=== PATIENT | female | born 1950 | race Caucasian/White ===

== ENCOUNTER 2023-12-01 16:31 | Emergency (ER) | payer MEDICARE, OTHER, SELFPAY ==
[2023-12-01 16:33] VITALS: BP 172/92
[2023-12-01 17:05] LABS: % Basophils 0.8 % (0-2); % Eosinophils 1.5 % (0-6); % Immature Granulocytes 0.2 % (0-0.5); % Lymphocytes 36.4 % (20.5-51.1); % Monocytes 4.8 % (1.7-9.3); % Neutrophils 56.3 % (42.2-75.2); Absolute Basophils 0.1 10^3/uL (0-0.2); Absolute Eosinophils 0.1 10^3/uL (0-0.7); Absolute Lymphocytes 2.4 10^3/uL (1.2-3.4); Absolute Monocytes 0.3 10^3/uL (0.1-0.6); Absolute Neutrophils 3.7 10^3/uL (1.4-6.5); Hematocrit 38.3 % (37.0-47.0); Hemoglobin 13.8 g/dL (12.0-16.0); Mean Corpuscular Hgb 32.1 pg (27.0-31.0); Mean Corpuscular Volume 89.1 fL (81.0-99.0); Mean Platelet Volume 9.9 fL (7.4-10.4); Nucleated Red Blood Cells % 0 %; Platelet Count 270 10^3/uL (130-400); Red Cell Dist. Width 12.5 % (11.5-14.5); White Blood Cell Count 6.5 10^3/uL (4.8-10.8)
[2023-12-01 17:24] LABS: ALT (SGPT) 25 U/L (0-35); AST (SGOT) 32 U/L (14-36); Albumin 4.6 g/dl (3.5-5.0); Alkaline Phosphatase 84 U/L (38-126); Blood Urea Nitrogen 17 mg/dl (7-17); Calcium 10.1 mg/dl (8.4-10.2); Carbon Dioxide 25 mmol/L (22-30); Chloride 101 mmol/L (98-107); Glucose 120 mg/dl (70-99); Potassium 3.2 mmol/L (3.5-5.1); Sodium 136 mmol/L (135-145); Total Bilirubin 0.7 mg/dl (0.2-1.3); eGFR > 60.00
[2023-12-01 17:33] LABS: Troponin I < 0.012 ng/ml
--- NOTE | 2023-12-01 17:40 | ED.PDOC.TRB ---
ED Provider Triage
-
Patient seen by provider in Triage?: Seen in Triage
A medical screening examination has been initiated by a qualified medical provider. Based on the assessment performed at this time, it has been determined that an emergent medical condition may exist and the patient has been informed that further
medical evaluation and possible additional diagnostic testing may be needed.
This is a medical evaluation conducted in person to initiate diagnostic evaluation and provide initial therapeutics. Please see further documentation by the treating clinician.
GENERAL: Alert , in no apparent distress
EYE: No visual abnormalities
NECK: No visual changes
ENT: No visual abnormalities
CARDIAC: No murmurs normal rate and rhythm
LUNGS: Breathing normally
ABDOMEN:
NEUROLOGICAL: Alert and oriented, no visual focal neuro deficits
SKIN: Warm and dry, skin intact.
MUSCULOSKELETAL: No edema, well perfused. Moving normally
PSYCH: Normal and appropriate interaction.
HPI/RA Plan: 73-year-old female presenting to the emergency department with concerns of a chest discomfort she describes as mainly a fluttering is not severe does not radiate associate with shortness of breath nausea vomiting or diaphoresis.
Worsened today maximally 4 hours ago. Initial workup here without acute abnormalities. Patient does have some nonspecific EKG changes, no old EKGs for comparison. Plan for repeated EKG for comparison here. Additionally chest x-ray ordered
pending further assessment.
[2023-12-01] MEDS: MAALOX 40 PO (17:55)
--- NOTE | 2023-12-01 20:12 | ED.GENMED ---
History of Present Illness
General
Chief Complaint: Chest Pain
Time Seen by Provider: 12/01/23 20:00
History of Present Illness
History of Present Illness:
73-year-old female with history of hypertension presents to the emergency department for evaluation of chest 'fluttering and pressure symptoms' as well as 'a general unpleasantness' in the chest. This began earlier today and has been intermittent
throughout the day. No obvious provoking or palliating factors. Denies any overt chest pain. Denies fevers or chills.
Review of Systems
Review of Systems
Allergies reviewed?: Yes
All Other Systems: ROS reviewed and negative except as documented in HPI and ROS
Phy Exam
Physical Exam
Physical Exam:
GEN: Well appearing, NAD, WDWN
HEENT: Oral mucosa moist, no scleral icterus
Cardiac: Regular rate and rhythm, no murmurs or extrasystoles
Lung: No respiratory distress, no tachypnea
MSK: No gross deformity or injuries
Skin: Good color, no pallor or jaundice, no rashes
Neuro: AO x3, moves all extremities freely
Psych: Calm, cooperative
Scores
Heart Score for Chest Pain Patients
STEMI patient?: No
History: Slightly or Non-Suspicious
ECG: Normal
Age: >/= 65 years
Risk Factors: 1 or 2 Risk Factors
Troponin: </= Normal Limit
Heart Score for Chest Pain Patients: 3
Heart Score Risk: 2.5% MACE over next 6 weeks
Course
Orders/Labs/Results
Orders:
Orders
12/01/23 16:35
Electrocardiogram (*1) Urgent
Reason for Study: Chest Pain
EKG- Treatment ONCE
12/01/23 16:55
Complete Blood Count/With Diff Urgent
Comprehensive Metabolic Panel Urgent
Troponin I Urgent
12/01/23 17:44
EKG [Electrocardiogram (*1)] Urgent
Reason for Study: Chest Pain
EKG- Treatment ONCE
Mag Hydrox/Al Hydrox/Simeth [Maalox] 30 ml Phenobarb/Hyoscy/Atropine/Scop [] 10 ml PO NOW
12/01/23 17:45
Chest [CR Chest - 2 Views ] Urgent
Comment:
Reason For Exam: cp
12/01/23 17:53
Mag Hydrox/Al Hydrox/Simeth [Maalox] 30 ml .ROUTE .STK-MED ONE
Phenobarb/Hyoscy/Atropine/Scop [] 10 ml .ROUTE .STK-MED ONE
12/01/23 20:11
Potassium Chloride [KCl] 40 meq PO NOW STA
Abnormal Lab Results
12/01/23
16:55
MCH 32.1 H pg
(27.0-31.0)
Potassium 3.2 L mmol/L
(3.5-5.1)
Glucose 120 H mg/dl
(70-99)
12/01/23 16:55
12/01/23 16:55
Vital Signs
Initial and Last Documented VS:
Initial Vital Signs
Temp Pulse Resp BP Pulse Ox
98.4 F 91 18 172/92 99
12/01/23 16:33 12/01/23 16:33 12/01/23 16:33 12/01/23 16:33 12/01/23 16:33
Last Documented Vital Signs
Temp Pulse Resp BP Pulse Ox
98.4 F 68 18 130/71 96
12/01/23 16:33 12/01/23 20:31 12/01/23 20:31 12/01/23 20:31 12/01/23 20:31
MDM/Problems Addressed
MDM/Problems Addressed:
Patient was initially evaluated in triage and labs and EKG were obtained which were unremarkable. On my evaluation the patient is relatively asymptomatic. She has noted to be mildly hypokalemic which is likely on the basis of her HCTZ use. Given
a p.o. dose of potassium here and educated the patient on dietary potassium increase. Low clinical suspicion for ACS
Comment
Comment:
EKG independently interpreted by me shows normal sinus rhythm at a rate of [address] changes concerning for ischemia
*Critical Care Note
Total Time (30-74mins, 75-104mins- exclusive of procedures): Not Applicable
ED Attending Note
-
Portions of this chart may have been created with voice recognition software.� Occasional wrong word or��sound alike� substitutions may have occurred due to the inherent limitations of voice recognition software.
Discharge Plan
Departure
Patient Disposition: Home (Routine Discharge)
Date of Disposition: 12/01/23
Time of Disposition: 20:12
Patient with high blood pressure during this ER visit?: No
Discharge Problem:
Atypical chest pain, Acute hypokalemia
Instructions: Hypokalemia, Chest Pain PCP Follow Up
Referrals:
Anni Mcconnell CRNP [Family Provider] -
Interventions
Interventions:
*Risk Screen - Suicide Last Done: 12/01/23 16:33
*General Assessment Last Done: 12/01/23 16:33
*Neglect/Abuse Screening Last Done: 12/01/23 16:33
ED- Fall Risk Assessment Last Done: 12/01/23 20:20
*ED COVID-19 Vaccine History Last Done: 12/01/23 16:33
*Nursing Disposition Last Done: 12/01/23 20:35
ED- Cardiac Assessment Last Done: 12/01/23 20:20
Discharge Date and Time
Discharge Date/Time: 12/01/23 20:35
Print Language: MONEGASQUE
[2023-12-01] MEDS: KCL 40 MEQ PO (20:26)
[2023-12-01 20:31] VITALS: BP 130/71
== END 2023-12-01 20:35 | disposition home or self-care (01) ==
LOC: EMR 16:31
PROVIDERS: Emergency Medicine; EMERGENCY PHYSICIAN Student in an Organized Health Care Education/Training Program; FAMILY PHYSICIAN Nurse Practitioner
DX: R07.89 Other chest pain (principal); I49.8 Other specified cardiac arrhythmias; E87.6 Hypokalemia; I10 Essential (primary) hypertension
CPT/HCPCS: 99284; 71046; 80053; 84484; 85025; 93005

== ENCOUNTER 2023-12-11 01:14 | Inpatient (IN) | payer MEDICARE, OTHER, SELFPAY ==
[2023-12-10 17:55] VITALS: BP 181/83
[2023-12-10 18:03] VITALS: BP 170/77
[2023-12-10 18:06] VITALS: BMI 32.5
[2023-12-10 18:23] LABS: % Basophils 0.6 % (0-2); % Eosinophils 3.6 % (0-6); % Immature Granulocytes 0.2 % (0-0.5); % Lymphocytes 35.6 % (20.5-51.1); % Monocytes 7.5 % (1.7-9.3); % Neutrophils 52.5 % (42.2-75.2); Absolute Eosinophils 0.2 10^3/uL (0-0.7); Absolute Lymphocytes 2.3 10^3/uL (1.2-3.4); Absolute Monocytes 0.5 10^3/uL (0.1-0.6); Absolute Neutrophils 3.4 10^3/uL (1.4-6.5); Hematocrit 37.1 % (37.0-47.0); Hemoglobin 13.4 g/dL (12.0-16.0); Mean Corp Hgb Conc. 36.1 g/dL (33.0-37.0); Mean Corpuscular Hgb 31.9 pg (27.0-31.0); Mean Corpuscular Volume 88.3 fL (81.0-99.0); Mean Platelet Volume 9.6 fL (7.4-10.4); Nucleated Red Blood Cells % 0.5 %; Platelet Count 144 10^3/uL (130-400); Red Cell Dist. Width 12.6 % (11.5-14.5); White Blood Cell Count 6.4 10^3/uL (4.8-10.8)
[2023-12-10 18:46] LABS: Troponin I < 0.012 ng/ml
[2023-12-10 18:49] LABS: Blood Urea Nitrogen 16 mg/dl (7-17); Calcium 9.3 mg/dl (8.4-10.2); Carbon Dioxide 29 mmol/L (22-30); Chloride 100 mmol/L (98-107); Estimated Creatinine Clearance 82 ml/min; Glucose 102 mg/dl (70-99); Sodium 136 mmol/L (135-145); eGFR > 60.00
[2023-12-10 19:00] VITALS: BP 156/67
--- NOTE | 2023-12-10 19:40 | ED.GENMED ---
History of Present Illness
General
Chief Complaint: Chest Pain
Time Seen by Provider: 12/10/23 19:07
History of Present Illness
History of Present Illness:
73-year-old female with prior history of breast cancer status post mastectomy more than 30 years ago, hypertension presenting to the emergency department for left-sided chest discomfort. Patient reports discomfort underneath her left breast which
started around 5 PM yesterday. Describes the pain as a 'annoyance'. Symptoms have been constant. Reports that a week ago she had similar discomfort, however was in the middle of her chest. She was seen and evaluated in the hospital, was told
that her potassium was slightly low, otherwise workup was unremarkable. Denies any difficulty breathing. Denies any history of blood clots. Denies any abdominal pain. Does report that she has had some belching. Denies any history of cardiac
issues. Denies any changes in her stool. Denies fever or cough. Denies additional medical
Phy Exam
Physical Exam
Physical Exam:
General: Well-appearing, no clinical signs of dehydration, nontoxic and in no acute distress
HEENT: protecting airway
Neck: appears supple
CV: Normal heart rate, regular rhythm, no evidence of cyanosis. No reproducible chest pain
Resp: No accessory muscle use, no increased work of breathing, lungs clear to auscultation bilaterally
Abd: Soft and non-distended, no tenderness to palpation, normal bowel sounds
Extremities: No deformities, no swelling, no erythema
Neuro: alert, no focal neurologic deficit
: deferred
Rectal: deferred
Psych: Normal affect
Skin: Intact
Scores
Heart Score for Chest Pain Patients
STEMI patient?: No
History: Slightly or Non-Suspicious
ECG: Normal
Age: >/= 65 years
Risk Factors: 1 or 2 Risk Factors
Troponin: </= Normal Limit
Heart Score for Chest Pain Patients: 3
Heart Score Risk: 2.5% MACE over next 6 weeks
Course
Orders/Labs/Results
Orders:
Orders
12/10/23 17:55
Electrocardiogram (*1) Urgent
Reason for Study: Chest Pain
EKG- Treatment ONCE
12/10/23 18:08
IV Insert/Care/Rem.- Treatment PRN
12/10/23 18:12
Basic Metabolic Panel Urgent
Complete Blood Count/With Diff Urgent
Troponin I Urgent
12/10/23 19:37
Ketorolac [Toradol] 15 mg IV NOW STA
12/10/23 19:38
CR Chest - 2 Views Urgent
Comment:
Reason For Exam: chest pain
12/10/23 20:25
COVID-19 Antigen Urgent
Source: Nasal Swab
D-Dimer Urgent
Troponin I Urgent
12/10/23 21:04
CT Pe/abd/pel W Urgent
Reason For Exam: L-chest pain, positive dimer
Abnormal Lab Results
12/10/23 12/10/23
18:12 20:25
MCH 31.9 H pg
(27.0-31.0)
D-Dimer 2.86 H ug/mlFEU
(0.00-0.50)
Glucose 102 H mg/dl
(70-99)
12/10/23 18:12
12/10/23 18:12
Vital Signs
Initial and Last Documented VS:
Initial Vital Signs
Temp Pulse Resp BP Pulse Ox
99.0 F 82 20 181/83 92
12/10/23 17:55 12/10/23 17:55 12/10/23 17:55 12/10/23 17:55 12/10/23 17:55
Last Documented Vital Signs
Temp Pulse Resp BP Pulse Ox
99.0 F 77 16 154/70 94
12/10/23 17:55 12/10/23 21:30 12/10/23 21:30 12/10/23 21:30 12/10/23 21:30
MDM/Problems Addressed
MDM/Problems Addressed:
73-year-old female with history of prior breast cancer and hypertension presenting for a left sided chest discomfort for 2 days. Vital signs significant for hypertension.
On exam patient is very well-appearing, no acute distress or discomfort. Unremarkable cardiac and pulmonary exam. EKG obtained on patient's arrival, nonischemic. No reproducible tenderness. Patient reports similar symptoms about a week ago. At
that time EKG also normal. Given duration of symptoms, lower suspicion for cardiac etiology. Patient had laboratory analysis prior to my assessment, troponin obtained, undetectable. At this time patient low risk by heart score. Patient without
any dyspnea, however given prior malignancy history, cannot satisfy PERC rule. For this reason we will add on D-dimer. Will obtain chest x-ray imaging and repeat troponin level. Will administer Toradol for pain and reassess
21:00 -patient with positive dimer. For this reason we will proceed with CT chest. In addition, patient is requesting a CT of her abdomen and pelvis given location of her pain. Explained low suspicion for intra-abdominal pathology given no
reproducible pain, however given persistence of symptoms, will obtain
23:20 -CT shows bilateral PE. PE burden in right upper lobe, and segmental and subsegmental branches. Given diffuse nature, feel patient warrants admission. However no right heart strain. Will start patient on heparin drip. Patient agreeable to
plan.
*EKG
Interpreted by ED Provider?: Yes
EKG Intrepretation Date: 12/10/23
EKG Intrepretation Time: 19:45
Interpretation: normal
Comparison EKG: no changes
Heart Rate: 83
Rate: normal
Rhythm: sinus
[place]: normal axis
Interval: normal interval
QRS Pattern: normal QRS
Ischemia: no ischemia
*Critical Care Note
Total Time (30-74mins, 75-104mins- exclusive of procedures): Not Applicable
ED Attending Note
-
Portions of this chart may have been created with voice recognition software.� Occasional wrong word or��sound alike� substitutions may have occurred due to the inherent limitations of voice recognition software.
Discharge Plan
Departure
Referrals:
Anni Mcconnell CRNP [Family Provider] -
Interventions
Interventions:
*Risk Screen - Suicide Last Done: 12/10/23 18:06
*General Assessment Last Done: 12/10/23 18:06
*Neglect/Abuse Screening Last Done: 12/10/23 18:06
*ED COVID-19 Vaccine History Last Done: 12/10/23 18:06
ED- Cardiac Assessment Last Done: 12/10/23 18:06
Discharge Date and Time
Print Language: ESTONIAN
[2023-12-10 20:52] LABS: D-Dimer 2.86 ug/mlFEU (0.00-0.50)
[2023-12-10 20:55] LABS: COVID-19 Antigen Negative (Negative)
[2023-12-10 21:11] LABS: Troponin I < 0.012 ng/ml
[2023-12-10 21:30] VITALS: BP 154/70
[2023-12-10] MEDS: TORADOL 15 MG IV (21:37)
[2023-12-10 22:30] VITALS: BP 146/68
--- NOTE | 2023-12-11 00:32 | HPS.HSE ---
Family Physician
-
Family Physician: BERRY Mayfield
Chief Complaint
-
Chest Pain
History of Present Illness
Patient is a 73y F with PMH significant for hypertension and remote breast CA who presents to ED complaining of left-sided chest discomfort. Patient states that she has been having vague discomfort in the L chest for the past 10 days. She was
seen here on 11/30 with an unremarkable evaluation at that time. Patient states that her symptoms have persisted since that time. She denies any back pain, N/V, diaphoresis, etc. Patient states that she has had perhaps some mild shortness of breath
with activity / exertion. Patient denies any prior history of similar symptoms.
She denies any recent surgery, long travel, injuries, etc.
Evaluation in the ED today reveals evidence of multiple, bilateral pulmonary emboli.
Medical History
Past Medical History
Past Medical History: Reports Other
Additional Past Medical History:
Hypertension
Breast Cancer s/p Mastectomy and Chemo (31 years ago)
Past Surgical History: Reports Other
Additional Past Surgical History:
Right Mastectomy
T&A
Social History
Tobacco: Non-smoker
Alcohol: None
Drug: None
Family History
Family History: Other (Father: Sudden at 57yo. Mother: HTN PGF / PGM: CAD)
Allergies / Home Medications
Allergies reflects when Allergies were last updated in [employer].
Home Medications with original date entered in [employer]
Allergy/Medication List:
Allergies
Allergy/AdvReac Type Severity Reaction Status Date / Time
No Known Allergies Allergy Verified 12/10/23 17:56
Home Medications
hydrochlorothiazide 25 mg tablet 25 mg PO DAILY 12/11/23
lisinopril 5 mg tablet 5 mg PO DAILY 12/11/23
multivitamin 1 tab PO DAILY 12/11/23
Review of Systems
-
History Source: Patient
A 12 point ROS was completed and negative except as noted: Yes
Constitutional: Denies Fever or Chills
EENT: Denies Sore Throat
Respiratory: Reports Trouble Breathing; Denies Cough or Hemoptysis
Cardiac: Reports Chest Pain; Denies Diaphoresis, Palpitations or Syncope
Abdomen/GI: Denies Abdominal Pain, Nausea or Vomiting
: Denies Dysuria, Frequency or Flank Pain
Musculoskeletal: Denies Edema
Neurological: Denies Dizzy or Headache
Psych: Denies Depression or Anxiety
Physical Exam
Vital Signs
Vital Signs
Temp Pulse Resp BP Pulse Ox
99.0 F 77 16 154/70 94
12/10/23 17:55 12/10/23 21:30 12/10/23 21:30 12/10/23 21:30 12/10/23 21:30
Physical Exam
General: Other (73y F in no acute distress.)
HEENT: Moist mucous membranes and PERRLA
Respiratory: Clear; No Wheezes, Rales or Rhonchi
Cardiac: S1/S2 and Regular Rhythm; No Murmur
GI: Soft, Non Tender, Non Distended and Normal Bowel Sounds
Musculoskeletal: No Clubbing, No Cyanosis and No Edema
Neuro: AO x 3
Laboratory Results
-
12/10/23 18:12
12/10/23 18:12
Laboratory Results
PT Cancelled 12/10/23 23:37
INR Cancelled 12/10/23 23:37
APTT Cancelled 12/10/23 23:37
Total Bilirubin Cancelled 12/10/23 18:12
AST Cancelled 12/10/23 18:12
ALT Cancelled 12/10/23 18:12
Alkaline Phosphatase Cancelled 12/10/23 18:12
Troponin I < 0.012 ng/ml 12/10/23 20:25
Impression/Plan
-
A/P: Patient is a 73y F with PMH significant for hypertension and remote breast cancer who presents to ED complaining of chest discomfort for the past 10 days.
Multiple Bilateral Pulmonary Emboli
- Admit for further evaluation and treatment.
- Hemodynamically stable. Minimal hypoxemia.
- No prior h/o VTE. No family history of VTE.
- IV heparin overnight.
- Transition to OAC / case management eval to confirm coverage.
- Follow for any clinical changes.
- Check Echo in AM.
- Prob eventual Hematology evaluation as an outpatient with no apparent provocation.
Benign Hypertension
- BP elevated somewhat in the ED.
- Continue lisinopril. Hold HCTZ.
- Potassium was mildly low on prior ED visit - current sample hemolyzed, follow-up recheck.
- Adjust med regimen as needed for BP control without electrolyte derangements.
History of Breast Cancer
- Remote h/o breast cancer s/p mastectomy and chemo.
- > 30 years post-treatment.
DVT Prophylaxis: On IV Heparin
Code Status: Full
[2023-12-11] MEDS: HEPARIN 7300 UNITS IV (01:00)
[2023-12-11 01:09] VITALS: BP 140/65
[2023-12-11 01:21] LABS: APTT 29.2 Sec (23.4-35.0); INR 1.12; PT 14.4 Sec (11.4-14.6)
[2023-12-11 02:16] VITALS: BP 185/80; BMI 31.5
[2023-12-11] MEDS: HEPARIN 25000 UNITS/250 ML IV (02:27)
[2023-12-11] MEDS: TYLENOL 650 MG PO ×2 (02:41→11:28)
--- NOTE | 2023-12-11 03:19 | PTCARENOTE ---
Received pt from ED AAO*4, Pt ambulates with no assist. Pt c/o L lower chest pain 08/05, prn tylenol given as per PRN. Bp185/80 HR 81. Irina Jerez Notified, No PRN ordered and will continue to monitor as per order. Heparin gtt initiated at 1600
units hour as per order with repeat PTT ordered at 0830. All orders reviewed and verified. Bed in low position with call calderón within reach.
[2023-12-11 06:03] VITALS: BP 139/71
[2023-12-11 08:55] VITALS: BP 143/74
[2023-12-11] MEDS: ZESTRIL 5 MG PO (09:03)
[2023-12-11] MEDS: ELIQUIS 10 MG PO (10:29)
[2023-12-11 11:45] VITALS: BP 141/63
--- NOTE | 2023-12-11 11:56 | W.PN.HOSP.TC ---
Addendum entered and electronically signed by Eric Pruitt MD 12/11/23 14:22:
pesi score intermediate
transition hep gtt to eliquis po
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
- -unprovoked vte. outpatient hypercoag workup with hem
Original Note:
Today's Communication/Plan
-
Switch to oral Eliquis.
Stop heparin.
Discharge patient and follow-up with primary care, cardiology.
Follow-up with hematology oncology.
Assessment / Plan
Assessment / Plan
[id number]-old female with PMH significant for hypertension, breast carcinoma (about 5 years ago) presents to the ER complaining of left-sided chest pain-diagnosed with multiple bilateral pulmonary emboli.
Plan-
Multiple bilateral pulmonary emboli -
Upon admission patient is hemodynamically stable with minimal hypoxia.
Has no prior history of VTE or family history.
Patient was started on heparin upon admission. Patient symptoms dramatically improved overnight.
Echocardiogram with normal LVEF and diastolic function, PASP-37 mmHg.
Questionable calcification could not rule out endocarditis on the echocardiogram.
Patient switched to oral Eliquis 10 mg twice a day for 7 days and then 5 mg twice a day.
Reviewed medication adjustments with the patient. Telemetry, EKG findings within normal limits.
Discussed the necessity of the patient to see primary care and also compliance of medication.
Plan to discharge her today.
Hypertension-
Continue lisinopril and hydrochlorothiazide.
Adjust blood pressure medications on outpatient basis.
DVT prophylaxis on IV heparin
CODE STATUS full code
History of breast carcinoma s/p mastectomy in the past
Anticipated Discharge: Today
Subjective/Interval History
-
Date of Service: December 11, 2023
Patient reports feeling much better today.
Objective Data
-
Labs:
Laboratory Results
12/10/23 12/11/23 12/11/23
23:37 00:51 06:00
PT Cancelled 14.4
INR Cancelled 1.12
APTT Cancelled 29.2
Sodium Cancelled
Potassium Cancelled
Chloride Cancelled
Carbon Dioxide Cancelled
BUN Cancelled
Creatinine Cancelled
Glucose Cancelled
Calcium Cancelled
12/11/23
08:30
PT
INR
APTT Cancelled
Sodium
Potassium
Chloride
Carbon Dioxide
BUN
Creatinine
Glucose
Calcium
Vital Signs:
Vital Signs
Temp Pulse Resp BP Pulse Ox
98.2 F 83 20 141/63 92
12/11/23 11:45 12/11/23 11:45 12/11/23 11:45 12/11/23 11:45 12/11/23 11:45
I&O
12/10/23 12/11/23 12/12/23
06:59 06:59 06:59
Intake Total 664 / 664
Balance 664 / 664
Review of Systems
-
History Source: Patient
Constitutional: Reports No Symptoms
Respiratory: Reports Trouble Breathing (Improved.)
Cardiac: Reports Chest Pain (Improved)
Abdomen/GI: Reports No Symptoms
Musculoskeletal: Reports No Symptoms
Neuro: Reports No Symptoms
Physical Exam
-
General: Well Developed, Well Nourished, No Apparent Distress and Comfortable (Breathing on room air.)
HEENT: Normocephalic, Atraumatic and Moist Mucous Membranes
Respiratory: Clear to Auscultation; Negative Wheezes, Rales or Rhonchi
Cardiac: Regular Rhythm and S1/S2; Negative Murmur, Rub or Gallop
GI: Soft, Nontender, Nondistended and Normal Bowel Sounds
Musculoskeletal: No Clubbing, No Cyanosis and No Edema
Neuro: AO x 3
Psych: Calm
Data Reviewed
-
Medical Tests (Nuc Med, Echo etc): Report Reviewed by me
Labs: Labs Reviewed by me and Discussed with Physician
--- NOTE | 2023-12-11 11:56 | W.DCSUMMARY ---
Documented by User: Janette Cerrato MD, Resident 12/11/23 12:19
Discharge Summary
Discharge Data
Date of Admission: 12/11/23
Date of Discharge: 12/11/23
-
Pending Results: No
Hospital Course
Admission diagnosis-
Multiple small pulmonary emboli.
Conditions [employer] WORK[employer]-
Hypertension
Breast carcinoma s/p mastectomy, in remission x 30 years.
Hospital course-
During her 1 day hospital course patient was started on heparin drip, and is monitored on telemetry and got an echocardiogram to identify her etiology of pulmonary emboli. Echocardiogram is significant for calcification of the tricuspid valve,
could not rule out the possibility of endocarditis. However patient does not have any SIRS criteria or physical examination findings significant for endocarditis. Reviewed Eliquis dosing and explained the risks and benefits of taking Eliquis to
the patient and patient is in agreement with the plan. Advised patient to follow-up with primary care, cardiology, hematology and oncology for a thorough workup for pulmonary emboli.
Data for this admission-
Echocardiogram-12/11/2023-
Normal LV size and function with no regional wall motion abnormalities.
LVEF is 65 to 70% by visual estimation.
Normal diastolic function.
Normal right ventricular size and function.
Focal calcification of anterior mitral valve leaflet. Mild mitral
regurgitation.
Mild to moderate tricuspid regurgitation.
Estimated pulmonary artery pressure of 37 mmHg assuming a right atrial pressure
of 3 mmHg.
Compared to prior from October 23, 2016, focal calcification of anterior mitral
valve leaflet is noted and TR is now mild to moderate previously trace. The
anterior MV leaflet favors calcification, however, in right clinical setting
cannot rule out endocarditis.
Telemetry-NSR with no evidence of tachycardia or bradycardia or arrhythmia.
EKG-NSR. Normal ECG.
Discharge Plan
-
Patient Disposition: Home (Routine Discharge)
Discharge Diagnosis/Procedures: VTE, Multiple small PE
Condition: Good
Diet: No restrictions
Activity: No restrictions
Driving Restrictions: As prior to admission
Bathing Restrictions: None
Referrals:
Anni Mcconnell CRNP [Family Provider] -
Additional Discharge Medication Instructions: Need to schedule appointment with cardiology, Primary care and Hematology/Oncology for further workup.
Prescriptions:
New
Eliquis DVT-PE Treat 30D Start 5 mg (74 tabs) tablets,dose pack
5 mg PO Q12H 30 Days Qty: 60 0RF
Rx Instructions:
Take 2 tablets twice a day for 7 days
then take 1 tablet twice a day for 30 days.
Continued
multivitamin Tablet
1 tab PO DAILY
lisinopril 5 mg Tablet
5 mg PO DAILY
hydrochlorothiazide 25 mg Tablet
25 mg PO DAILY
Discharge Orders:
Discharge Patient (As Directed); Ordered 12/11/23
Ordered By: Janette Cerrato
Discharge Date and Time
Print Language: UPPER SORBIAN

Documented by User: Eric Pruitt MD 12/11/23 14:18
Discharge Summary
Discharge Data
Date of Admission: 12/11/23
Date of Discharge: 12/11/23
Discharge Plan
-
Patient Disposition: Home (Routine Discharge)
Discharge Diagnosis/Procedures: VTE, Multiple small PE
Condition: Good
Diet: No restrictions
Activity: No restrictions
Driving Restrictions: As prior to admission
Bathing Restrictions: None
Referrals:
Anni Mcconnell CRNP [Family Provider] -
Additional Discharge Medication Instructions: Need to schedule appointment with cardiology, Primary care and Hematology/Oncology for further workup.
Prescriptions:
New
Eliquis DVT-PE Treat 30D Start 5 mg (74 tabs) tablets,dose pack
5 mg PO Q12H 30 Days Qty: 60 0RF
Rx Instructions:
Take 2 tablets twice a day for 7 days
then take 1 tablet twice a day for 30 days.
Continued
multivitamin Tablet
1 tab PO DAILY
lisinopril 5 mg Tablet
5 mg PO DAILY
hydrochlorothiazide 25 mg Tablet
25 mg PO DAILY
Discharge Orders:
Discharge Patient (As Directed); Ordered 12/11/23
Ordered By: Janette Cerrato
Discharge Date and Time
Print Language: UPPER SORBIAN
--- NOTE | 2023-12-11 12:09 | CM ---
Alert awake oriented patient who lives in 1 story home with 5 steps to enter and bed and bathroom on first floor. She is independent in driving working and all ADLs. [employer] is $486.84 / mon . Pt has a first month [employer] free coupon.
Suggested she call [employer] for more discounts which she said she will contact. Offered VN she declined need .
No adaptive devices
No VN SNF HX
Pharmacy [facility] [place]
PCP Dr Mcconnell
PLAN Home no needs
== END 2023-12-11 14:55 | disposition home or self-care (01) | DRG 176 ==
LOC: 4 EAST ACU 01:14
PROVIDERS: Emergency Medicine; Student in an Organized Health Care Education/Training Program; ADMITTING PHYSICIAN Hospitalist; ATTENDING PHYSICIAN Hospitalist; EMERGENCY PHYSICIAN Student in an Organized Health Care Education/Training Program; FAMILY PHYSICIAN Nurse Practitioner
DX: I26.99 Other pulmonary embolism without acute cor pulmonale (principal); I10 Essential (primary) hypertension; Z85.3 Personal history of malignant neoplasm of breast; Z90.11 Acquired absence of right breast and nipple; Z92.21 Personal history of antineoplastic chemotherapy; Z82.49 Family history of ischemic heart disease and other diseases of the circulatory system; Z11.52 Encounter for screening for COVID-19
CPT/HCPCS: 71046; 71275; 74177; 80048; 84484; 85025; 85379; 85610; 85730; 87811; 93005; 93306; 96374; 96375; 99285; Q9967

== ENCOUNTER → 2024-01-28 12:32 | Outpatient (REF) | payer MEDICARE, OTHER, SELFPAY | LOC: HWRAD 12:32 | PROVIDERS: ATTENDING PHYSICIAN Nurse Practitioner | DX: M85.80 Other specified disorders of bone density and structure, unspecified site (principal); Z12.31 Encounter for screening mammogram for malignant neoplasm of breast; Z78.0 Asymptomatic menopausal state | CPT/HCPCS: 77063; 77067; 77080 ==

== ENCOUNTER → 2024-08-11 10:30 | Outpatient (REF) | payer MEDICARE, OTHER, SELFPAY | LOC: RAD 10:30 | PROVIDERS: ATTENDING PHYSICIAN Internal Medicine Hematology & Oncology; FAMILY PHYSICIAN Nurse Practitioner Adult Health | DX: I26.99 Other pulmonary embolism without acute cor pulmonale (principal); Z85.3 Personal history of malignant neoplasm of breast; Z68.32 Body mass index [BMI] 32.0-32.9, adult; D68.318 Other hemorrhagic disorder due to intrinsic circulating anticoagulants, antibodies, or inhibitors | CPT/HCPCS: 93970 ==

== ENCOUNTER → 2025-03-04 12:33 | Outpatient (REF) | payer MEDICARE, OTHER, SELFPAY | LOC: HWRCS 12:33 | PROVIDERS: ATTENDING PHYSICIAN Internal Medicine Cardiovascular Disease; FAMILY PHYSICIAN Nurse Practitioner Adult Health | DX: I10 Essential (primary) hypertension (principal); I26.99 Other pulmonary embolism without acute cor pulmonale; Z82.49 Family history of ischemic heart disease and other diseases of the circulatory system; I07.1 Rheumatic tricuspid insufficiency | CPT/HCPCS: 93306 ==

== ENCOUNTER → 2025-04-06 09:49 | Outpatient (REF) | payer MEDICARE, OTHER, SELFPAY | LOC: HWWDC 09:49 | PROVIDERS: ATTENDING PHYSICIAN Nurse Practitioner Adult Health | DX: Z12.31 Encounter for screening mammogram for malignant neoplasm of breast (principal) | CPT/HCPCS: 77063; 77067 ==